=== PATIENT | male | born 1950 | race Caucasian/White ===

== ENCOUNTER 2024-03-08 15:56 | Emergency (ER) | payer BC ==
[~2024-03-08] VITALS: Ht 175.3 cm; Wt 68.5 kg
[2024-03-08] MEDS ORDERED: HYDROCODONE/APAP 5/325MG TABLET ONE (18:48)
[2024-03-08] MEDS ORDERED: IBUP-1955 PO (18:49)
[2024-03-08] MEDS ORDERED: LIDO30AD10 TP (18:49)
[2024-03-08] MEDS ORDERED: CYCL5TAB PO (18:49)
[2024-03-08] MEDS ORDERED: HYDR-4303 PO (18:49)
[2024-03-08] MEDS: HYDROCODONE/APAP 5/325MG TABLET PO ONE (18:51)
[2024-03-08 18:59] VITALS: BP 150/84; TEMP 98.6; O2SAT 99
== END 2024-03-08 19:00 | disposition home or self-care (01) ==
LOC: ER 16:14
DX: S52.592A Other fractures of lower end of left radius, initial encounter for closed fracture (principal); S20.211A Contusion of right front wall of thorax, initial encounter; I10 Essential (primary) hypertension; W01.0XXA Fall on same level from slipping, tripping and stumbling without subsequent striking against object, initial encounter; Y93.89 Activity, other specified; Y92.89 Other specified places as the place of occurrence of the external cause; Y99.8 Other external cause status
CPT/HCPCS: 71100-TC; 73110

== ENCOUNTER 2024-10-30 10:51 | Inpatient (IN) | payer BC ==
[~2024-10-30] VITALS: Ht 177.8 cm; Wt 66.7 kg
[~2024-10-30 10:51] MED LIST: CYCL5TAB PO; HYDR-4303 PO; IBUP-1955 PO; LIDO30AD10 TP
[2024-10-30 11:29] LABS: BASOPHILS % (AUTO) 0.1 % (0.0-2.0); EOSINOPHILS # (AUTO) 0.1 K/uL (0.0-0.7); EOSINOPHILS % (AUTO) 0.3 % (0.0-6.0); HEMATOCRIT 29 % (39-51); HEMOGLOBIN 9.7 g/dL (13.5-17.5); LYMPHOCYTES # (AUTO) 0.7 K/uL (0.8-4.8); MEAN CORPUSCULAR HEMOGLOBIN 32 PG (26.0-33.0); MEAN CORPUSCULAR HGB CONC 33 g/dl (31.0-36.0); MEAN CORPUSCULAR VOLUME 97 fL (80-96); MONOCYTES # (AUTO) 1.4 K/uL (0.1-1.30); NEUTROPHILS # (AUTO) 20.6 K/uL (1.8-8.9); NEUTROPHILS % (AUTO) 90.6 % (43.0-81.0); PLATELET COUNT (AUTO) 521 K/uL (150-450); RED CELL DISTRIBUTION WIDTH 13.2 % (11.5-15.0); WHITE BLOOD COUNT (AUTO) 22.7 K/uL (4.3-11.0)
[2024-10-30 11:37] LABS: CALCIUM, SERUM 8.1 mg/dL (8.5-10.1); CARBON DIOXIDE 31 mmol/L (21-32); CHLORIDE 99 mmol/L (98-107); CREATININE 1.7 mg/dL (0.6-1.3); GLUCOSE 108 mg/dL (74-106); POTASSIUM 5.2 mmol/L (3.5-5.1); SODIUM SERUM 134 mmol/L (136-145); UREA NITROGEN, BLOOD 31 mg/dL (7-18)
[2024-10-30 11:50] LABS: NT-PRO BNP 829 pg/mL (0-125)
[2024-10-30] MEDS: IV NS 0.9% 1,000 ML BAG IV ONE (11:55)
[2024-10-30] MEDS: CEFTRIAXONE 1 G in IV D5W 50 ML IV ONE (12:02)
[2024-10-30] MEDS: AZITHROMYCIN 500 MG in IV D5W 250 ML IV ONE (12:03)
[2024-10-30] MEDS: ENOXAPARIN SODIUM 40 MG/0.4 ML DISP.SYRIN SQ SCH (14:30)
[2024-10-30] MEDS ORDERED: ONDANSETRON HCL/PF 4 MG/2 ML VIAL IVP PRN (14:30)
[2024-10-30] MEDS ORDERED: MAGNESIUM HYDROXIDE 30 ML UDC PO PRN (14:30)
[2024-10-30] MEDS ORDERED: MAG HYDROX/AL HYDROX/SIMETH 30 ML UDC PO PRN (14:30)
[2024-10-30] MEDS ORDERED: HYDROCODONE/APAP 5/325MG TABLET PO PRN (14:30)
[2024-10-30] MEDS ORDERED: ZOLPIDEM TARTRATE 5 MG TABLET PO PRN (14:30)
[2024-10-30] MEDS ORDERED: CEFTRIAXONE 1GM BAG (ER ONLY) 0 ML IV ONE (14:31)
[2024-10-30 15:26] LABS: APPEARANCE,URINE CLEAR (CLEAR); BILIRUBIN,URINE NEGATIVE (NEGATIVE); BLOOD, URINE NEGATIVE Ery/uL (NEGATIVE); KETONES,URINE NEGATIVE (NEGATIVE); LEUKOCYTE ESTERASE ,URINE NEGATIVE (NEGATIVE); NITRITE, URINE NEGATIVE (NEGATIVE); PROTEIN,URINE NEGATIVE (NEGATIVE); UGLUCOSE NEGATIVE (NEGATIVE); UROBILINOGEN,URINE 0.2 EU/dL (0.2)
[2024-10-30 15:28] LABS: COLOR,URINE STRAW (YELLOW)
[2024-10-30] MEDS ORDERED: ENOXAPARIN SODIUM 40 MG/0.4 ML DISP.SYRIN SQ ONE (15:53)
[2024-10-30] MEDS ORDERED: CALC0.253 PO (16:49)
[2024-10-30] MEDS ORDERED: OLME40TA18 PO (16:49)
[2024-10-30] MEDS ORDERED: VIT1CAPS44 PO (16:49)
[2024-10-30] MEDS ORDERED: AMLO-213 PO (16:49)
[2024-10-30 20:00] VITALS: BP 109/61; TEMP 99.7; O2SAT 98
[2024-10-30] MEDS: IV D5/0.45 NACL 1,000 ML IV PRN (22:46)
[2024-10-30] MEDS: ACETAMINOPHEN 325 MG TABLET PO PRN (22:47)
[2024-10-31] VITALS (7 sets, daily range): BP systolic 110–119; BP diastolic 60–81; TEMP 97.5–98.4; O2SAT 93–100
[2024-10-31 06:46] LABS: BASOPHILS % (AUTO) 0.2 % (0.0-2.0); EOSINOPHILS # (AUTO) 0.1 K/uL (0.0-0.7); EOSINOPHILS % (AUTO) 0.7 % (0.0-6.0); HEMATOCRIT 30 % (39-51); HEMOGLOBIN 9.9 g/dL (13.5-17.5); LYMPHOCYTES # (AUTO) 0.9 K/uL (0.8-4.8); LYMPHOCYTES % (AUTO) 4.9 % (20.0-44.0); MEAN CORPUSCULAR HEMOGLOBIN 33 PG (26.0-33.0); MEAN CORPUSCULAR HGB CONC 34 g/dl (31.0-36.0); MEAN CORPUSCULAR VOLUME 97 fL (80-96); MONOCYTES # (AUTO) 1.2 K/uL (0.1-1.30); MONOCYTES % (AUTO) 6.9 % (2.0-12.0); NEUTROPHILS # (AUTO) 15.7 K/uL (1.8-8.9); NEUTROPHILS % (AUTO) 87.3 % (43.0-81.0); PLATELET COUNT (AUTO) 475 K/uL (150-450); RED BLOOD CELL COUNT(AUTO) 3.04 MIL/uL (4.5-6.0); RED CELL DISTRIBUTION WIDTH 13.3 % (11.5-15.0)
[2024-10-31 07:11] LABS: CALCIUM, SERUM 8.2 mg/dL (8.5-10.1); CREATININE 1.4 mg/dL (0.6-1.3); MAGNESIUM 2.3 mg/dL (1.8-2.4); PHOSPHORUS 4.4 mg/dL (2.5-4.9); POTASSIUM 4.7 mmol/L (3.5-5.1)
[2024-10-31] MEDS: PANTOPRAZOLE 40 MG TABLET.DR PO SCH (08:52)
[2024-10-31] MEDS: AMLODIPINE BESYLATE 10 MG TABLET PO SCH (09:00)
[2024-10-31] MEDS: CALCITRIOL 0.25 MCG CAPSULE PO SCH (09:57)
[2024-10-31] MEDS: Z GUARD REMEDY 4 OZ OINT TP PRN (09:57)
[2024-10-31] MEDS ORDERED: AZITHROMYCIN 500 MG in IV D5W 250 ML IV SCH (12:00)
[2024-10-31] MEDS: CEFTRIAXONE 1 G in IV D5W 50 ML IV SCH (12:10)
[2024-10-31] MEDS: ZITHROMAX 500 MG/250 ML D5W IV SCH (12:10)
[2024-10-31 14:58] LABS: INR 1.07 (0.91-1.10); PARTIAL THROMBOPLASTIN TIME 35.7 SEC (24.3-34.3); PROTHROMBIN TIME 11.3 SECS (9.2-11.1)
[2024-10-31 16:11] LABS: ABG BASE EXCESS 2.3 mmol/L (-2.0-3.0); ABG OXYGEN SATURATION 93.3 % (94.0-98.0); ABG PH 7.474 (7.350-7.450); ABG PO2 66.5 mmHg (83.0-108.0); ABG TOTAL HEMOGLOBIN 10.9 G/dL (13.5-17.5); COHb 0.1 % (0.5-1.5); MetHb 0.1 % (0.0-1.5); O2Hb 93.1 % (94.0-97.0); SITE, ABG LEFT RADIAL
[2024-11-01 07:13] LABS: BASOPHILS # (AUTO) 0.1 K/uL (0.0-0.2); BASOPHILS % (AUTO) 0.4 % (0.0-2.0); EOSINOPHILS # (AUTO) 0.2 K/uL (0.0-0.7); EOSINOPHILS % (AUTO) 1.1 % (0.0-6.0); HEMATOCRIT 29 % (39-51); HEMOGLOBIN 9.4 g/dL (13.5-17.5); LYMPHOCYTES # (AUTO) 1.1 K/uL (0.8-4.8); LYMPHOCYTES % (AUTO) 7.3 % (20.0-44.0); MEAN CORPUSCULAR HEMOGLOBIN 32 PG (26.0-33.0); MEAN CORPUSCULAR HGB CONC 32 g/dl (31.0-36.0); MEAN CORPUSCULAR VOLUME 97 fL (80-96); MONOCYTES # (AUTO) 0.9 K/uL (0.1-1.30); MONOCYTES % (AUTO) 6.1 % (2.0-12.0); NEUTROPHILS # (AUTO) 12.5 K/uL (1.8-8.9); NEUTROPHILS % (AUTO) 85.1 % (43.0-81.0); PLATELET COUNT (AUTO) 542 K/uL (150-450); RED CELL DISTRIBUTION WIDTH 12.9 % (11.5-15.0); WHITE BLOOD COUNT (AUTO) 14.7 K/uL (4.3-11.0)
[2024-11-01 07:47] LABS: CREATININE, URINE 103.6 MG/DL (30.0-125.0); URINE TOTAL PROTEIN 26.1 mg/dL (0-11.9)
[2024-11-01 08:32] LABS: CALCIUM, SERUM 8.7 mg/dL (8.5-10.1); CREATININE 1.3 mg/dL (0.6-1.3); MAGNESIUM 2.4 mg/dL (1.8-2.4); PHOSPHORUS 4.1 mg/dL (2.5-4.9); POTASSIUM 4.6 mmol/L (3.5-5.1); TOTAL PROTEIN, SERUM 6.4 g/dL (6.4-8.2)
[2024-11-01 08:48] LABS: BILIRUBIN,TOTAL 0.1 mg/dL (0.2-1.0)
[2024-11-01 11:36] LABS: ALBUMIN 1.8 g/dL (3.4-5.0)
[2024-11-01 12:00] VITALS: BP 121/54; TEMP 98.8; O2SAT 97
[2024-11-01 16:00] VITALS: BP 125/56; TEMP 98.7; O2SAT 98
[2024-11-01] MEDS: PIPERACILLIN /TAZOBACTAM 3.375 G in IV D5W 50 ML IV SCH (18:06)
[2024-11-01 20:44] VITALS: BP 128/76; TEMP 98; O2SAT 93
[2024-11-02 08:00] LABS: BASOPHILS % (AUTO) 0.3 % (0.0-2.0); EOSINOPHILS # (AUTO) 0.2 K/uL (0.0-0.7); EOSINOPHILS % (AUTO) 1.8 % (0.0-6.0); HEMATOCRIT 30 % (39-51); HEMOGLOBIN 9.9 g/dL (13.5-17.5); LYMPHOCYTES % (AUTO) 8.1 % (20.0-44.0); MEAN CORPUSCULAR HEMOGLOBIN 32 PG (26.0-33.0); MEAN CORPUSCULAR HGB CONC 33 g/dl (31.0-36.0); MEAN CORPUSCULAR VOLUME 97 fL (80-96); MONOCYTES # (AUTO) 0.9 K/uL (0.1-1.30); MONOCYTES % (AUTO) 7.1 % (2.0-12.0); NEUTROPHILS # (AUTO) 10.4 K/uL (1.8-8.9); NEUTROPHILS % (AUTO) 82.7 % (43.0-81.0); PLATELET COUNT (AUTO) 487 K/uL (150-450); RED BLOOD CELL COUNT(AUTO) 3.07 MIL/uL (4.5-6.0); WHITE BLOOD COUNT (AUTO) 12.6 K/uL (4.3-11.0)
[2024-11-02 08:30] VITALS: BP 115/72; TEMP 97.6; O2SAT 96
[2024-11-02 08:49] LABS: ALBUMIN 1.9 g/dL (3.4-5.0); BILIRUBIN,TOTAL 0.1 mg/dL (0.2-1.0); CALCIUM, SERUM 8.5 mg/dL (8.5-10.1); CREATININE 1.5 mg/dL (0.6-1.3); MAGNESIUM 2.3 mg/dL (1.8-2.4); PHOSPHORUS 4.8 mg/dL (2.5-4.9); POTASSIUM 4.8 mmol/L (3.5-5.1); TOTAL PROTEIN, SERUM 6.6 g/dL (6.4-8.2)
[2024-11-02 09:07] LABS: PTH, INTACT 17 pg/mL (15-65)
[2024-11-02] MEDS ORDERED: SULF1TAB48 PO (13:33)
[2024-11-02] MEDS ORDERED: LEVO750T46 PO (13:33)
[2024-11-02 16:00] VITALS: BP 124/72; TEMP 97.7; O2SAT 97
[2024-11-02 20:00] VITALS: BP 118/68; TEMP 98.1; O2SAT 97
[2024-11-03] VITALS: BP 121/69; TEMP 98.2; O2SAT 97
[2024-11-03 08:00] VITALS: BP 119/58; TEMP 98.2; O2SAT 96
[2024-11-03 16:04] VITALS: BP 120/77; TEMP 98.6; O2SAT 96
[2024-11-03 20:00] VITALS: BP 118/72; TEMP 98.5; O2SAT 96
[2024-11-04 07:00] VITALS: BP 111/69; TEMP 98.1; O2SAT 96
[2024-11-04] MEDS: ENSURE ENLIVE 237 ML LIQUID (VANILLA) PO SCH (08:42)
[2024-11-04 08:43] VITALS: BP 111/69
[2024-11-05 05:09] LABS: *SPE A/G RATIO 0.6 (0.7-1.7); *SPE ALBUMIN 2.1 g/dL (2.9-4.4); *SPE ALPHA-1-GLOBULIN 0.4 g/dL (0.0-0.4); *SPE ALPHA-2-GLOBULIN 1.1 g/dL (0.4-1.0); *SPE GLOBULIN, TOTAL 3.8 g/dL (2.2-3.9); *SPE M-SPIKE Not Observed g/dL (Not Observed); *SPE PROTEIN TOTAL 5.9 g/dL (6.0-8.5); *SPEGAMMA GLOBULIN 1.4 g/dL (0.4-1.8)
== END 2024-11-04 14:00 | disposition home or self-care (01) | DRG 193 ==
LOC: ER 11:00 → MED 17:20 → TELE 18:37 → MED 10-31 11:01
DX: J15.9 Unspecified bacterial pneumonia (principal); N17.0 Acute kidney failure with tubular necrosis; D75.839 Thrombocytosis, unspecified; E87.6 Hypokalemia; I12.9 Hypertensive chronic kidney disease with stage 1 through stage 4 chronic kidney disease, or unspecified chronic kidney disease; N18.9 Chronic kidney disease, unspecified; Z87.891 Personal history of nicotine dependence; M89.8X9 Other specified disorders of bone, unspecified site; E87.5 Hyperkalemia; E86.0 Dehydration; D64.9 Anemia, unspecified; R91.1 Solitary pulmonary nodule; Z79.899 Other long term (current) drug therapy
CPT/HCPCS: 36415; 36600; 71045-TC; 71250-TC; 76770-TC; 80048-TC; 80053-TC; 82550-TC; 82570-TC; 82803-TC; 83605-TC; 83735-TC; 83880; 83970; 84100-TC; 84155; 84165; 84300-TC; 84484-TC; 85025-TC; 85730-TC; 87040-TC; 87086-TC; 93307-TC; 97116-TC; 97530-TC; A4223; G0378; J0456; J0696; J1650; J2543; J3490; J7030; J7060

== ENCOUNTER 2024-12-05 13:09 | Inpatient (IN) | payer BC ==
[~2024-12-05] VITALS: Ht 177.8 cm; Wt 65.8 kg
[~2024-12-05 13:09] MED LIST changes: +AMLO-213 PO; +CALC0.253 PO; -CYCL5TAB PO; -HYDR-4303 PO; -IBUP-1955 PO; +LEVO750T46 PO; -LIDO30AD10 TP; +OLME40TA18 PO; +SULF1TAB48 PO; +VIT1CAPS44 PO
[2024-12-05 14:01] LABS: BASOPHILS % (AUTO) 0.5 % (0.0-2.0); EOSINOPHILS % (AUTO) 0.2 % (0.0-6.0); HEMATOCRIT 36 % (39-51); HEMOGLOBIN 11.6 g/dL (13.5-17.5); LYMPHOCYTES # (AUTO) 0.5 K/uL (0.8-4.8); MEAN CORPUSCULAR HEMOGLOBIN 32 PG (26.0-33.0); MEAN CORPUSCULAR HGB CONC 33 g/dl (31.0-36.0); MEAN CORPUSCULAR VOLUME 98 fL (80-96); MONOCYTES # (AUTO) 0.4 K/uL (0.1-1.30); NEUTROPHILS # (AUTO) 3.4 K/uL (1.8-8.9); NEUTROPHILS % (AUTO) 78.3 % (43.0-81.0); PLATELET COUNT (AUTO) 168 K/uL (150-450); RED BLOOD CELL COUNT(AUTO) 3.64 MIL/uL (4.5-6.0); WHITE BLOOD COUNT (AUTO) 4.3 K/uL (4.3-11.0)
[2024-12-05 14:17] LABS: ALANINE AMINOTRANSFERASE 12 U/L (12-78); ALBUMIN 3.3 g/dL (3.4-5.0); ALKALINE PHOSPHATASE 65 U/L (46-116); ASPARTATE AMINOTRANSFERASE 21 U/L (15-37); BILIRUBIN,DIRECT 0.1 mg/dL (0.0-0.2); BILIRUBIN,TOTAL 0.2 mg/dL (0.2-1.0); CALCIUM, SERUM 8.6 mg/dL (8.5-10.1); CARBON DIOXIDE 24 mmol/L (21-32); CHLORIDE 103 mmol/L (98-107); CREATININE 1.8 mg/dL (0.6-1.3); GLUCOSE 122 mg/dL (74-106); LACTIC ACID 2.1 mmol/L (0.4-2.0); POTASSIUM 5.4 mmol/L (3.5-5.1); SODIUM SERUM 137 mmol/L (136-145); TOTAL PROTEIN, SERUM 7.1 g/dL (6.4-8.2); UREA NITROGEN, BLOOD 23 mg/dL (7-18)
[2024-12-05 14:56] LABS: ABG BASE EXCESS -3.9 mmol/L (-2.0-3.0); ABG PCO2 25.3 mmHg (35.0-48.0); ABG PH 7.474 (7.350-7.450); ABG PO2 166.9 mmHg (83.0-108.0); ABG TOTAL HEMOGLOBIN 12.5 G/dL (13.5-17.5); COHb 0.3 % (0.5-1.5); MetHb 0.2 % (0.0-1.5); O2Hb 98.5 % (94.0-97.0)
[2024-12-05] MEDS: IV NS 0.9% 1,000 ML BAG IV ONE (15:19)
[2024-12-05] MEDS ORDERED: MAG HYDROX/AL HYDROX/SIMETH 30 ML UDC PO PRN ×2 (15:30→18:15)
[2024-12-05] MEDS ORDERED: ONDANSETRON HCL/PF 4 MG/2 ML VIAL IVP PRN ×2 (15:30→18:15)
[2024-12-05] MEDS ORDERED: ENOXAPARIN SODIUM 30 MG/0.3 ML DISP.SYRIN SQ SCH (15:30)
[2024-12-05] MEDS ORDERED: ACETAMINOPHEN 325 MG TABLET PO PRN (15:30)
[2024-12-05] MEDS ORDERED: MAGNESIUM HYDROXIDE 30 ML UDC PO PRN ×2 (15:30→18:15)
[2024-12-05] MEDS ORDERED: Z GUARD REMEDY 4 OZ OINT TP PRN ×2 (15:30→18:15)
[2024-12-05] MEDS ORDERED: IOHEXOL-350 100 ML VIAL IV ONE (15:31)
[2024-12-05] MEDS ORDERED: IV NS 0.9% 250 ML IV ONE (15:31)
[2024-12-05] MEDS: LEVOFLOXACIN 750 MG /D5W 150ML PIGGYBACK IV ONE (15:45)
[2024-12-05] MEDS: CEFEPIME 1 GM in IV D5W 50 ML IV ONE (17:22)
[2024-12-05] MEDS: VANCOMYCIN 1 GM in IV D5W 250 ML IV ONE (17:53)
[2024-12-05] MEDS: ENOXAPARIN SODIUM 30 MG/0.3 ML DISP.SYRIN SQ SCH (19:14)
[2024-12-05] MEDS: ZOSYN IVPB 2.25 G in IV D5W 50ml IV SCH (19:20)
[2024-12-05 20:00] VITALS: BP 120/74; TEMP 98.6; O2SAT 94
[2024-12-06] MEDS: ACETAMINOPHEN 325 MG TABLET PO PRN (01:20)
[2024-12-06 04:00] VITALS: BP 115/60; TEMP 98.1; O2SAT 94
[2024-12-06 08:00] VITALS: BP 149/72; TEMP 98.2; O2SAT 94
[2024-12-06] MEDS: MULTIVITAMIN/LUTEIN/MINERALS 1 TAB PO SCH (08:56)
[2024-12-06] MEDS: AMLODIPINE BESYLATE 10 MG TABLET PO SCH (08:57)
[2024-12-06] MEDS: LOSARTAN POTASSIUM 50 MG TABLET PO SCH (08:57)
[2024-12-06] MEDS ORDERED: AMLODIPINE BESYLATE 10 MG TABLET PO SCH (09:00)
[2024-12-06] MEDS: SODIUM ZIRCONIUM CYCLOSILICATE 10 GM POWD.PACK PO ONE (10:15)
[2024-12-06 12:00] VITALS: BP 125/69; TEMP 98; O2SAT 94
[2024-12-06 13:18] LABS: BASOPHILS % (AUTO) 0.8 % (0.0-2.0); BILIRUBIN,TOTAL 0.2 mg/dL (0.2-1.0); CALCIUM, SERUM 8.2 mg/dL (8.5-10.1); CREATININE 1.5 mg/dL (0.6-1.3); EOSINOPHILS % (AUTO) 0.5 % (0.0-6.0); HEMATOCRIT 36 % (39-51); HEMOGLOBIN 11.9 g/dL (13.5-17.5); LYMPHOCYTES # (AUTO) 0.5 K/uL (0.8-4.8); LYMPHOCYTES % (AUTO) 17.7 % (20.0-44.0); MAGNESIUM 1.8 mg/dL (1.8-2.4); MEAN CORPUSCULAR HEMOGLOBIN 32 PG (26.0-33.0); MEAN CORPUSCULAR HGB CONC 33 g/dl (31.0-36.0); MEAN CORPUSCULAR VOLUME 99 fL (80-96); MONOCYTES # (AUTO) 0.3 K/uL (0.1-1.30); MONOCYTES % (AUTO) 10.2 % (2.0-12.0); NEUTROPHILS # (AUTO) 2.2 K/uL (1.8-8.9); NEUTROPHILS % (AUTO) 70.8 % (43.0-81.0); PHOSPHORUS 4.2 mg/dL (2.5-4.9); PLATELET COUNT (AUTO) 161 K/uL (150-450); POTASSIUM 4.8 mmol/L (3.5-5.1); RED BLOOD CELL COUNT(AUTO) 3.68 MIL/uL (4.5-6.0); RED CELL DISTRIBUTION WIDTH 14.8 % (11.5-15.0); TOTAL PROTEIN, SERUM 6.5 g/dL (6.4-8.2); WHITE BLOOD COUNT (AUTO) 3.1 K/uL (4.3-11.0)
== END 2024-12-06 13:22 | disposition home or self-care (01) | DRG 871 ==
LOC: ER 13:25 → MEDSG1 18:16
PROVIDERS: ADMIT Internal Medicine; ATTEND Internal Medicine
DX: A41.9 Sepsis, unspecified organism (principal); J15.69 Pneumonia due to other Gram-negative bacteria; J96.01 Acute respiratory failure with hypoxia; N17.0 Acute kidney failure with tubular necrosis; N17.9 Acute kidney failure, unspecified; E44.0 Moderate protein-calorie malnutrition; E87.20 Acidosis, unspecified; R65.20 Severe sepsis without septic shock; E87.5 Hyperkalemia; N18.9 Chronic kidney disease, unspecified; I12.9 Hypertensive chronic kidney disease with stage 1 through stage 4 chronic kidney disease, or unspecified chronic kidney disease; Z79.899 Other long term (current) drug therapy; E88.09 Other disorders of plasma-protein metabolism, not elsewhere classified; N18.32 Chronic kidney disease, stage 3b; D64.9 Anemia, unspecified; M89.8X9 Other specified disorders of bone, unspecified site; Z87.891 Personal history of nicotine dependence
CPT/HCPCS: 36415; 36600; 71045-TC; 80048-TC; 80053-TC; 80076-TC; 82803-TC; 83605-TC; 83735-TC; 84100-TC; 84484-TC; 85025-TC; 85378-TC; 87040-TC; 94799-TC; A4223; G0378; J0692; J1650; J2543; J3370; J7050; J7060; Q9967